=== PATIENT | male | born 1965 | race Caucasian/White ===

== ENCOUNTER 2019-09-06 12:39 | Outpatient (CLI) | payer BC ==
[2019-09-06] MEDS ORDERED: OMNIPAQUE 350 MG/ML, 150 ML BOTTLE ONE (14:03)
== END 2019-09-06 23:59 | disposition home or self-care (01) ==
LOC: CFH 12:39 → MERGE 13:30 → RAD 23:59
PROVIDERS: ATTEND Internal Medicine Cardiovascular Disease
DX: I48.91 Unspecified atrial fibrillation (principal)
CPT/HCPCS: 71046; 75572; Q9967

== ENCOUNTER 2019-09-14 06:00 | Observation (INO) | payer BC ==
[~2019-09-14] VITALS: Ht 185.4 cm; Wt 93.0 kg
[2019-09-14] MEDS ORDERED: SODIUM CHLORIDE 0.9% 1,000 ML IV SCH ×2 (06:21→06:30)
[2019-09-14 06:22] VITALS: BP 151/101
[2019-09-14] MEDS ORDERED: SOTA80TA PO (06:57)
[2019-09-14] MEDS ORDERED: METO25TA35 PO (06:57)
[2019-09-14] MEDS ORDERED: ASPI-650 PO (06:57)
[2019-09-14] MEDS ORDERED: MIDAZOLAM 1 MG/ML, 2ML ONE (07:32)
[2019-09-14] MEDS ORDERED: FENTANYL PF 250 MCG/5ML ONE (07:32)
[2019-09-14] MEDS ORDERED: PROTAMINE SULFATE 10 MG/ML, 25ML ONE (08:01)
[2019-09-14] MEDS ORDERED: DEXAMETHASONE 4 MG/ML, 1ML ONE (08:01)
[2019-09-14] MEDS ORDERED: ROCURONIUM 10 MG/ML,10ML ONE (08:01)
[2019-09-14] MEDS ORDERED: PROPOFOL 10 MG/ML, 20ML ONE (08:01)
[2019-09-14] MEDS ORDERED: SUCCINYLCHOLINE 20 MG/ML, 10ML ONE (08:01)
[2019-09-14 08:11] LABS: ANION GAP 3 mmol/L (5-15); BASOPHILS # (AUTO) 0.03 x10^3/uL (0-0.1); BASOPHILS % (AUTO) 1 % (0-1); CALCIUM 9.5 mg/dL (8.5-10.1); CHLORIDE 110 mmol/L (98-107); EOSINOPHILS # (AUTO) 0.08 x10^3/uL (0-0.4); EOSINOPHILS % (AUTO) 2 % (1-7); LYMPHOCYTES # (AUTO) 1.34 x10^3/uL (1-3.4); LYMPHOCYTES % (AUTO) 25 % (22-44); MD NO; MEAN CORPUSCULAR HEMOGLOBIN 31.6 pg (27.5-34.5); MEAN CORPUSCULAR HGB CONC 32.2 g/dL (33.2-36.2); MEAN PLATELET VOLUME 7.9 fL (7.4-10.4); MONOCYTES # (AUTO) 0.63 x10^3/uL (0.2-0.8); MONOCYTES % (AUTO) 12 % (2-9); NEUTROPHILS % (AUTO) 61 % (42-75); PLATELET COUNT 265 x10^3/uL (130-400); RED CELL DISTRIBUTION WIDTH 14.1 % (9.4-14.8)
[2019-09-14] MEDS ORDERED: LIDOCAINE 2%, 20ML ONE (08:23)
[2019-09-14] MEDS ORDERED: EPHEDRINE 50 MG/ML, 1ML ONE (08:41)
[2019-09-14] MEDS ORDERED: HEPARIN 1,000 UNITS/ML, 10ML ONE ×4 (11:47)
[2019-09-14] MEDS ORDERED: APIXABAN 5 MG TABLET ONE (12:42)
[2019-09-14] MEDS ORDERED: DIAZEPAM 5 MG/ML, 2ML IVPush PRN (13:00)
[2019-09-14] MEDS ORDERED: MEPERIDINE/PF 25MG/0.5ML IVPush PRN (13:00)
[2019-09-14] MEDS ORDERED: MIDAZOLAM 1 MG/ML, 2ML IV PRN (13:00)
[2019-09-14] MEDS ORDERED: ALBUTEROL SULFATE 2.5 MG/3 ML NPPB PRN (13:00)
[2019-09-14] MEDS ORDERED: LABETALOL 5MG/ML, 20ML IV PRN (13:00)
[2019-09-14] MEDS ORDERED: HYDROmorphone 1 MG/ML, 1ML INJ IVPush PRN (13:00)
[2019-09-14] MEDS ORDERED: PROMETHAZINE 25 MG/ML, 1ML IVPush PRN (13:00)
[2019-09-14] MEDS ORDERED: ONDANSETRON 2MG/ML, 2ML IVPush PRN (13:00)
[2019-09-14] MEDS ORDERED: hydrALAzine 20 MG/ML, 1ML IV PRN (13:00)
[2019-09-14] MEDS ORDERED: ACETAMINOPHEN 325 MG TABLET PO PRN ×2 (13:00→18:30)
[2019-09-14] MEDS ORDERED: PROMETHAZINE 12.5 MG SUPP PR PRN (13:00)
[2019-09-14] MEDS ORDERED: FENTANYL PF 100 MCG/2ML IV PRN (13:00)
[2019-09-14] MEDS ORDERED: DIPHENHYDRAMINE 50 MG/ML, 1ML IVPush PRN (13:00)
[2019-09-14] MEDS ORDERED: EPHEDRINE 50 MG/ML, 1ML IVPush PRN (13:00)
[2019-09-14] MEDS ORDERED: OXYcodone 5 MG/5 ML ORAL.SOL UDC PO PRN (13:00)
[2019-09-14] MEDS ORDERED: APIXABAN 5 MG TABLET PO ONE ×2 (13:30→14:30)
[2019-09-14 15:36] LABS: BASOPHILS % (AUTO) 0 % (0-1); EOSINOPHILS % (AUTO) 0 % (1-7); LYMPHOCYTES # (AUTO) 0.61 x10^3/uL (1-3.4); LYMPHOCYTES % (AUTO) 7 % (22-44); MD SCAN; MEAN CORPUSCULAR HEMOGLOBIN 31.7 pg (27.5-34.5); MEAN CORPUSCULAR HGB CONC 32.1 g/dL (33.2-36.2); MEAN CORPUSCULAR VOLUME 98.5 fL (81-97); MEAN PLATELET VOLUME 7.6 fL (7.4-10.4); MONOCYTES # (AUTO) 0.03 x10^3/uL (0.2-0.8); MONOCYTES % (AUTO) 0 % (2-9); NEUTROPHILS % (AUTO) 93 % (42-75); PLATELET COUNT 246 x10^3/uL (130-400); RED BLOOD COUNT 4.05 x10^6/uL (4.38-5.82); RED CELL DISTRIBUTION WIDTH 13.8 % (9.4-14.8)
[2019-09-14 21:00] VITALS: BP 144/83
[2019-09-14] MEDS: COLCHICINE 0.6 MG CAPSULE PO SCH (22:38)
[2019-09-14] MEDS: SOTALOL 80MG TABLET PO SCH (22:38)
[2019-09-14] MEDS: APIXABAN 5 MG TABLET PO SCH (22:38)
[2019-09-14] MEDS: METOPROLOL TARTRATE 25 MG TAB PO SCH (22:39)
[2019-09-15 03:49] VITALS: BP 124/76
[2019-09-15 07:35] VITALS: BP 111/71
[2019-09-15] MEDS ORDERED: ASPIRIN 325 MG TABLET EC PO SCH (09:00)
[2019-09-15] MEDS: SOTALOL 80MG TABLET PO SCH (09:12)
[2019-09-15] MEDS: METOPROLOL TARTRATE 25 MG TAB PO SCH (09:12)
[2019-09-15] MEDS: COLCHICINE 0.6 MG CAPSULE PO SCH (09:13)
[2019-09-15] MEDS: APIXABAN 5 MG TABLET PO SCH (09:13)
[2019-09-15] MEDS ORDERED: TRAM50TA2 PO (09:33)
[2019-09-15] MEDS ORDERED: APIX5TAB PO (09:33)
[2019-09-15] MEDS ORDERED: COLC0.6C3 PO (09:36)
== END 2019-09-15 11:50 | disposition home or self-care (01) ==
LOC: CACL 06:00 → 5SO 12:27 → CACL 22:24 → DCLOUNGE 09-15 11:41
PROVIDERS: ADMIT Internal Medicine Cardiovascular Disease; ATTEND Internal Medicine Cardiovascular Disease
DX: Z03.818 Encounter for observation for suspected exposure to other biological agents ruled out (principal); I48.0 Paroxysmal atrial fibrillation; F10.10 Alcohol abuse, uncomplicated; F19.10 Other psychoactive substance abuse, uncomplicated; Z79.899 Other long term (current) drug therapy
CPT/HCPCS: 36415; 80048; 85025; 85347; 87635; 93306; 93312; 93321; 93325; 93613; 93656; 93662; C1730; C1732; C1759; C1766; C1893; C1894; G0378; J0330; J1100; J1644; J2250; J2704; J2720; J3010; J3490